=== PATIENT | female | born 1940 | race African-American/Black ===

== ENCOUNTER 2020-11-02 22:58 | Emergency (ER) | payer OTHER ==
[~2020-11-02] VITALS: Ht 165.1 cm; Wt 100.0 kg
[2020-11-02] MEDS ORDERED: ONDANSETRON 4MG ODT PO STA (23:18)
[2020-11-02 23:43] LABS: BASOPHILS % 0.9 % (0.0-2.0); EOSINOPHILS % 3.8 % (0.0-5.0); HEMATOCRIT. 46.8 % (36.0-48.0); HEMOGLOBIN. 15.1 g/dL (12.0-16.0); LYMPHOCYTES % 17.1 % (20.0-50.0); MEAN CORPUSCULAR HEMOGLOBIN 26.5 pg (28.0-32.0); MEAN PLATELET VOLUME 9.2 fl (7.4-10.4); MONOCYTES % 8.9 % (2.0-8.0); NEUTROPHILS % 69.3 % (40.0-76.0); PLATELET 259 x1000/uL (130-400); RED CELL DISTRIBUTION WIDTH 13.7 % (11.6-14.6)
[2020-11-02 23:46] LABS: CHLORIDE 101 mEq/L (98-107)
[2020-11-03] MEDS ORDERED: POTASSIUM CHLORIDE 20MEQ TABLET SR PO ONE
[2020-11-03] MEDS ORDERED: ONDA4TAB5 MT (00:16)
[2020-11-03 00:20] VITALS: BP 155/74
== END 2020-11-03 00:25 | disposition home or self-care (01) ==
LOC: ER 22:58
DX: E87.6 Hypokalemia (principal); R11.0 Nausea; K21.9 Gastro-esophageal reflux disease without esophagitis; I10 Essential (primary) hypertension; Z90.49 Acquired absence of other specified parts of digestive tract
CPT/HCPCS: 36415; 80053; 84484; 85025; 93005; 99284; Q0162

== ENCOUNTER 2023-02-02 04:35 | Inpatient (IN) | payer OTHER ==
[~2023-02-02] VITALS: Ht 165.1 cm; Wt 104.8 kg
[~2023-02-02 04:35] MED LIST: ONDA4TAB5 MT
[2023-02-02 04:40] VITALS: O2SAT 94
[2023-02-02 06:07] LABS: HEMOGLOBIN. 11.9 g/dL (12.0-16.0); MEAN CORPUSCULAR HEMOGLOBIN 26.4 pg (28.0-32.0); MEAN CORPUSCULAR VOLUME 82.1 fL (81.0-99.0); MEAN PLATELET VOLUME 8.5 fl (7.4-10.4); PLATELET 308 x1000/uL (130-400); RED BLOOD CELL COUNT 4.51 mill/uL (4.2-5.4)
[2023-02-02 06:16] LABS: CHLORIDE 100 mEq/L (98-107)
[2023-02-02 07:29] LABS: PLATELET ESTIMATE NORMAL
[2023-02-02 08:04] LABS: INR 1.2; PROTHROMBIN TIME 12.4 sec (9.6-11.0)
[2023-02-02] MEDS ORDERED: SODIUM BICARBONATE 4% (2.4MEQ) 5ML VIAL IV ONE (08:27)
[2023-02-02] MEDS ORDERED: LIDOCAINE HCL 1% 10 MG/ML 10ML VIAL ONE (08:27)
[2023-02-02] MEDS ORDERED: FUROSEMIDE 20MG/2ML VIAL IVP ONE (09:45)
[2023-02-02] MEDS ORDERED: FUROSEMIDE 40MG/4ML VIAL IVP NR (11:30)
[2023-02-02 15:09] VITALS: BP 126/56; PULSE 85; RESP 20; TEMP 97.5
[2023-02-02 16:00] VITALS: BP 120/44; PULSE 78; RESP 18; TEMP 97.1
== END 2023-02-02 18:45 | disposition short-term general hospital (02) | DRG 948 ==
LOC: ER 05:25 → EDBEDREQ 09:18 → EDBEDREQTM 10:38 → 7WST 13:20
PROVIDERS: ADMIT Internal Medicine Pulmonary Disease; ATTEND Emergency Medicine
PROC: 0W9G3ZZ Drainage of Peritoneal Cavity, Percutaneous Approach (ICD-10-PCS; principal; 2023-02-02)
DX: R18.8 Other ascites (principal); E87.1 Hypo-osmolality and hyponatremia; E44.1 Mild protein-calorie malnutrition; I11.0 Hypertensive heart disease with heart failure; E78.00 Pure hypercholesterolemia, unspecified; K21.9 Gastro-esophageal reflux disease without esophagitis; D72.829 Elevated white blood cell count, unspecified; E66.9 Obesity, unspecified; I10 Essential (primary) hypertension; Z68.38 Body mass index [BMI] 38.0-38.9, adult; I50.9 Heart failure, unspecified
CPT/HCPCS: 36415; 49083; 71045; 80053; 83880; 84484; 85025; 93005; 99285; J1940; J3490